=== PATIENT | female | born 1985 | race Caucasian/White ===

== ENCOUNTER 2018-07-14 15:36 | Emergency (ER) | payer OTHER ==
[~2018-07-14] VITALS: Ht 157.5 cm; Wt 65.3 kg
[2018-07-14] MEDS ORDERED: PREPARATION H1 EAC2 (16:05)
[2018-07-14] MEDS ORDERED: PREPARATION H C26 GM (16:06)
== END 2018-07-14 16:51 | disposition home or self-care (01) ==
LOC: ER 15:36
DX: K64.4 Residual hemorrhoidal skin tags (principal)